=== PATIENT | female | born 1990 | race Caucasian/White ===

== ENCOUNTER 2022-07-16 17:14 | Emergency (ER) | payer OTHER ==
[2022-07-16 17:21] VITALS: BP 134/83; PULSE 97; RESP 18; TEMP 98.1; BMI 32.1
[2022-07-16] MEDS ORDERED: CLINDAMYCIN 600MG PREMIX IVPB 600 MG/50 ML BAG IVPB ONE ×2 (17:32→17:38)
== END 2022-07-16 18:45 | disposition home or self-care (01) ==
LOC: FER 17:14
PROC: 3E033GC Introduction of Other Therapeutic Substance into Peripheral Vein, Percutaneous Approach (ICD-10-PCS; principal; 2022-07-16)
DX: T81.49XA Infection following a procedure, other surgical site, initial encounter (principal); Y83.8 Other surgical procedures as the cause of abnormal reaction of the patient, or of later complication, without mention of misadventure at the time of the procedure
CPT/HCPCS: 99283-25